=== PATIENT | male | born 1965 | race Caucasian/White ===

== ENCOUNTER 2025-07-14 12:49 | Outpatient (CLI) | payer OTHER, SELFPAY ==
--- OUTSIDE RECORDS SUMMARY | 2025-07-15 10:13 | XMS_ITS | Clinical Summary ---
Author Organization [facility] Address [address] [place] [address] Care Team Providers Care Staking Engineer Name Role Phone [facility], [place] Pro vider Allergies No known active allergies Medications TESTOSTERONE ENANTHATE SC Inject 200 mg as directed per week. 11/16/2021 Active budesonide-form oterol (SYMBICORT) 160-4.5 MCG/ACT inhaler Inhale 2 puffs twice a day. 02/10/2022 Active traZODone (DESYREL) 100 MG tablet Take 1 tablet (100 mg) by mouth at bed time. 03/02/2022 Active baclofen (LIORESAL) 10 MG tablet Take 1 tablet (10 mg) by mouth 3 times a day. 04/26/2022 Active nicotine (NICODERM CQ) 21 MG/24HR Place 21 mg on the skin 1 (one) time each day at the same time. 04/26/2022 Active acetaminophen (TYLENOL) 325 MG tablet Take 2 tablets (650 mg) by mouth 1 (one) time each day if needed for Pain Score 1-3 (mild pain). Active Melatonin 5 MG capsule Take 2 capsules by mouth every night. Active omeprazole OTC (PriLOSEC OTC) 20 MG EC tablet Take 1 tablet (20 mg) by mouth 1 (one) time each day. Do not crush, chew, or split. Active Probiotic Product (Align) chewable tablet Chew 1 Gum 1 (one) time each day. Active Ascorbic Acid (vitamin C) 1000 MG tablet Take 2 tablets (2,000 mg) by mouth 1 (one) time each day. Active Testosterone Cypionate 200 MG/ML solution Inject 200 mg as directed 1 (one) time per week. Max Daily Amount: 200 mg Active HYDROcodone-karoline taminophen ([place]) 10-325 MG tablet Take 1 tablet by mouth every 6 (six) hours if needed for Pain Score 7-10 (severe pain). Max Daily Amount: 4 tablets 20 tablet 05/08/2022 10:09 PM CDT 05/08/2022 Active Active Problems Problem Noted Date Diagnosed Date Hepatic abscess 05/04/2022 Family History Medical History Relation Name Comments No Known Problems Father No Known Problems Mother Relation Name Status Comments Father Mother Social History Tobacco Use Types Packs/Day Years Used Date Smoking Tobacco: Every Day Cigarettes Smokeless Tobacco: Never Tobacco Cessation:Ready to Q uit: Not Asked; Counseling Given: Not Answered Alcohol Use Standard Drinks/Week Comments Yes 5 (1 standard drink = 0.6 oz pur e alcohol) Humiliation, Afraid, Rape, and Kick questionnair e Answer Date Recorded Within the last year, have y ou been afraid of your partner or ex-partner? No 05/05/2022 Within the last year, have y ou been humiliated or emotionally abused in other ways by your partner or ex-partner? No Within the last year, have y ou been kicked, hit, slapped, or otherwise physically hurt by your partner or ex-partner? No 05/05/2022 Within the last year, have y ou been raped or forced to have any kind of sexual activity by your partner or ex-partner? No 05/05/2022 Social Connection and Isolation Panel Answer Date Recorded Frequency of Communication with Friends and Fami ly Not on file 05/06/2022 Frequency of Social Gatherings with Friends and Family Not on file 05/06/2022 Attends Zoroastrian Services Not on file 05/06 Active Member of Clubs or Organizations Not on f ile 05/06/2022 Attends Club or Organization Meetings Not on gertrude e 05/06/2022 Are you , , di vorced, , never , or living with a partner? 05/06/2022 AUDIT-C Answer Date Recorded Q1: How often do you have a drink containing alc ohol? 2-4 times a month 05/06/2022 Q2: How many drinks containi ng alcohol do you have on a typical day when you are drinking? 1 or 2 05/06/2022 Q3: How often do you have si x or more drinks on one occasion? Never 05/06/2022 PHQ-2 Answer Date Recorded Total PHQ-2 Score 0 05/04/2022 Hunger Vital Sign Answer Date Recorded Within the past 12 months, y ou worried that your food would run out before you got the money to buy more. Never true 05/05/20 Within the past 12 months, t he food you bought just didn't last and you didn't have money to get more. Never true 05/05/2022 PRAPARE - Transportation Answer Date Re corded In the past 12 months, has l ack of transportation kept you from medical appointments or from getting medications? No 04/16 In the past 12 months, has l ack of transportation kept you from meetings, work, or from getting things needed for daily living? No 05/05/2022 Sex and Gender Information Value Date Recorded Sex Assigned at Not on file Legal Sex Male 1:58 PM CDT Gender Identity Not on file Sexual Orientation Not on file Last Filed Vital Signs Vital Sign Reading Time Taken Comments Blood Pressure 139/85 05/08/2022 2:14 PM CDT Pulse 77 05/08/2022 2:14 PM CDT Temperature 37 C (98.6 F) 05/08/2022 2:14 PM CDT Respiratory Rate 18 05/08/2022 2:14 PM CDT Oxygen Saturation 98% 05/08/2022 2:14 PM CDT Inhaled Oxygen Concentration - - Weight 90.7 kg (200 lb) 05/04/2022 1:26 PM CDT Height 188 cm (6' 2 ) 05/04/2022 1:26 PM CDT Body Mass Index 25.68 05/04/2022 1:26 PM CDT Plan of Treatment Health Maintenance Due Date Last Done Comments Colonoscopy 1965 Colorectal Cancer Screening 1965 FIT-DNA (Cologuard) 1965 Lipid Panel 1965 Stool Based Tests/ FIT 1965 Hemoglobin A1C 1983 Hepatitis C Screening 1983 DTaP,Tdap,and Td Vaccines (1 - Tdap) 1984 Hepatitis B Vaccines (1 of 3 - 19+ 3-dose series) 1984 Pneumococcal Vaccine: 50+ Ye ars (1 of 2 - PCV) 1984 RSV Vaccine for pat ients and patients aged 50 years or older (1 - Risk 50-74 years 1-dose series) 2015 Zoster Vaccines (1 of 2) 2015 COVID-19 Vaccine (2 - 2024-2 6 season) 2025 03/01/2021 Influenza Vaccine (#1) 2025 HIV Screening Completed 05/04/2022 HPV Vaccines (No Doses Required) Completed Meningococcal Vaccine (MCV4) Aged Out No longer eligible based on patient's age to complete this topic Procedures Procedure Name Priority Date/Time Associated Diagnosis Comments HIV UNIVERSAL SCREENING STAT 05/04/2022 2:06 PM CDT from Last 3 Months or Most Recently Relevant to Health Maintenance Results * HIV Ag/Ab [place] Screen (05/04/2022 2:06 PM CDT) [facility] HIV Ag/Ab Combo (CHIV) Assay Nonreactive Nonreactive 05/04/2022 5:13 PM CDT [facility] Blood Venous blood / Unknown Venipuncture / Unknown 05/04/2022 2:06 PM CDT 05/04/2022 2:23 PM CDT us Mateo Kaplan PA-C LAB BLOOD ORDERABLES Final R esult [facility] [place] [address] from Last 3 Months or Most Recently Relevant to Health Maintenance Insurance [employer] Advance Directives For more information, please contact: [phone] * Full Code (Latest Code Status on File) Date Activated Date Inactivated Comments 05/04/2022 9:55 PM 05/09/2022 12:09 AM Care Teams Staking Engineer Relationship Specialty Start Date End Date [facility] [address] [place] [address] PCP - General 05/08/22
--- OUTSIDE RECORDS SUMMARY | 2025-07-15 10:13 | XMS_ITS | Patient Health Record ---
Author Organization [facility] Billing Info Address [address] [place] [address] Phone [phone] Care Team Providers Care Beaming Machine Operator Name Role Phone JOSE ANTONIO MANZO Primary Care Provider Unavailabl e Allergies No Known Allergies Reason For Referral No Information Medications Medication SIG (Take, Route, Frequency, Duration) Notes Start Date End Date Diagnosis (ICD Code) Status Crestor Not-Taking Trazodone HCl Active Wellbutrin SR Active Symbicort Active Testosterone Cypionate Active ProAir RespiClick prn Active Omeprazole Active Social History Tobacco Use: Social History Observation Description Date Details (start date - stop date) Current Smoker NA - NA Sex Observation Social History Observation Description Sex Observation Male Social History Social History Social Info Question Answer Notes Tobacco Status: Patient is a current every day smoke r packs per day 1 Alcohol Use: Patient uses alcohol once a week Section Notes: Patient agrees to a blood tr ansfusion. Problems Problem Type SNOMED Code ICD Code Dates Problem Status W/U Status Risk Notes Problem Electrocardiogram abnormal (005914416) Abnormal EKG (R94.31) Added On:01/2023 Active confirmed Problem Tobacco abuse (8570278567) Tobacco abuse (Z72.0) Added On:01/2023 Active confirmed Problem Abdominal aortic atherosclerosis (696167982) Abdominal aortic atherosclerosis (I70.0) Added On:01/2023 Active confirmed Plan Of Treatment Pending Test Test Name Order Date EKG (30179) ([facility]MMIQ[facility]) 023 Future Test Test Name Order Date ECHO (70812) 09/19/2022 CARDIAC CALCIUM SCORE (CCSA 32869) 09/19 Insurance Providers Payer Name Payer Address Payer Phone Subscriber Number Group Number Insured Name Patient Relationship to Insured Coverage Start Date Coverage End Date [facility] [address] [place], [place] [id number] James Garza Self - patient is the insured Medical (General) History Medical History History ICD Code Esophageal reflux Insomnia Low testosteronemi Mixed hyperlipidemia Abscess Polycythemia Restless leg syndrome Leukocytosis atherosclerosis Surgical History Surgery Date(Month/Year) cholecystectomy ecoli removed from stomach after gallbla dder removed Hospitalization History Reason Date(Month/Year) Alex bladder removal 04/2022 ecoli inection
--- OUTSIDE RECORDS SUMMARY | 2025-07-15 10:13 | XMS_ITS | Data Portability ---
Author Organization [place] - [facility], [facility] - General Surgery [place] [address] Assessment Encounter Date Assessment Date Assessment LastModified by Organization Details LastModified Time 11/27/2024 11/27/2024 I am providing care for this patient as a PCP meaning I have provided ongoing care for this patient regarding all the chronic health issues affecting the patient. A total of minutes was spent obtaining /reviewing the patient's history, performing an examination, reviewing records, ordering medications or diagnostic tests/procedures , coordination of care and documenting clinical information in the medical record. This time does not include activities normally performed by clinical staff or duplicate any time spent by other healthcare professionals on the same day. Disclaimer: This document was created with the use of artificial intelligence and/or dictation software, there may be typographical errors in this documentation. Not available 11/27/2024 10:59:02 Plan of Treatment Reminders Order Date Submit Date Provider Last Modified By Organization Details Last Modified Time Details Appointments Annual exam (30) 2025 10:00A M Ty Funez MD Not available Not available Not available Lab CMP, serum or plasma [address] (Lab), [address] [place], [address], 06/22/2025 08:48:24 CBC w/ auto diff [address] (Lab), [address] [place], [address], 06/22/2025 08:48:24 lipid panel, serum [address] (Lab), [address] [facility] , [place], [address], 06/22/2025 08:48:24 apolipo protein B (apo B), serum [address] (Lab), [address] [facility] , [place], [address], 07/13/2025 09:54:56 vitamin D, 25-hydr oxy, total, serum [address] (Lab), [address] [facility] , [place], [address], 07/13/2025 09:54:56 PSA, serum or plasma [address] (Lab), [address] [facility] , [place], [address], 07/13/2025 09:54:56 testost erone, total, serum [address] (Lab), [address] [facility] , [place], [address], 02/11/2025 10:04:00 urinaly sis, dipstic k 2024 025 [facility], [address], [address], [place], [address], 12/30/2024 17:57:09 lipid panel, serum [address] (Lab), [address] [facility] , [place], [address], 12/18/2024 08:53:03 testost erone, total, serum 2024 025 [facility] (Lab), [address] [place] [address] [place], [address], 06/15/2025 15:23:54 vitamin B12, serum 2024 025 [facility] (Lab), [address] [place] [address] [place], [address], 06/15/2025 15:24:20 PSA, total, serum or plasma 2024 025 [facility] (Lab), [address] [place] [address] [place], [address], 06/15/2025 15:24:44 CBC w/ auto diff [address] (Lab), [address] [place] [address] [place], [address], 12/18/2024 08:53:03 CMP, serum or plasma [address] (Lab), [address] [place] [address] [place], [address], 12/18/2024 08:53:03 Referral None recorde d. Procedures None recorde d. Surgeries None recorde d. Imaging LDCT, chest, for lung cancer screeni ng - lookup the date of last lung cancer screeni ng, [facility] at [facility] 2024 025 [email or web address] [facility], [address] [place] [address] [place], [address], 01/08/2025 11:02:53 Medication Orders flutica sone propion ate 50 mcg/act uation nasal spray,s uspensi on 2024 025 josef [place] [facility], [address] [facility], [place], [address], 01/14/2025 11:18:00 azithro mycin 500 mg tablet 2024 025 [facility], [address] , [place], [address], 06/15/2025 14:36:35 budeson jai-for moterol HFA 160 mcg-4.5 mcg/act uation aerosol inhaler 2024 025 fsalley [facility], [address], [place], [address], 01/14/2025 11:18:00 terbina fine HCl 250 mg tablet 2024 025 D[facility] [place] [facility], [address] , [place], [address], 06/15/2025 14:36:32 trazodo ne 100 mg tablet 2024 025 [facility], [address] , [place], [address], 11/27/2024 10:45:36 bupropi on HCl 150 mg tablet, 12 hr sustain ed-rele ase([facility] cinthya deterre nt) 2024 025 DEE[facility], [address] [facility], [place], [address], 12/30/2024 16:52:33 Patient TargetsNo targets recorded. Patient Instructions Encounter Date Encounter Id Patient Instructions Last Modified By Organization Details Last Modified Time 11/27/2024 [id number] chronic obstructive pulmonary disease (COPD): care instructions Not available 11/27/2024 10:45:32 learning about copd and how to prevent lung infections Not available 11/27/2024 10:45:33 heart-healthy diet: care instructions Not available 11/27/2024 10:45:33 Decreased Male Libido: Care Instructions Not available 11/27/2024 10:45:33 12/30/2024 [id number] Patient instructed to increase water intake until urine is clear. [email or web address] Not available 12/30/2024 17:42:45 Reason for Referral None Reported. Results Created Date Observation Date Name Description Value Unit Range Abnormal Flag Note LastModifiedBy Organization Detail LastModifiedTime 12/31/1912/30/2024 urina lysis , dipst ick Color thelma Not Available [facility] [address] [facility] Clementina sarabia, [place], [address], 12/30/2024 17:28:25 12/31/19 25 12/30/2024 urina lysis , dipst ick Clarity slight ly cloudy Not Available [facility] [address] [facility] no, [place], [address], 12/30/2024 17:28:25 12/31/19 25 12/30/2024 urina lysis , dipst ick Glucose (mg/dl) Negati ve Not Available [facility] [address] [facility] no, [place], [address], 12/30/2024 17:28:25 12/31/19 25 12/30/2024 urina lysis , dipst ick Bilirubin Small+ Not Available [facility] [place] [address] [facility] no, [place], [address], 12/30/2024 17:28:25 12/31/19 25 12/30/2024 urina lysis , dipst ick Ketone (mg/dl) 15 (small ) Not Available [facility] [place] [address] [facility] no, [place], [address], 12/30/2024 17:28:25 12/31/19 25 12/30/2024 urina lysis , dipst ick Specific [place] >=1.03 0 Not Available [facility] [place] [address] [facility] no, [place], [address], 12/30/2024 17:28:25 12/31/19 25 12/30/2024 urina lysis , dipst ick Blood Negati ve Not Available [facility] [place] [address] [facility] no, [place], [address], 12/30/2024 17:28:25 12/31/19 25 12/30/2024 urina lysis , dipst ick pH 5.5 Not Available [facility] [address] [facility] no, [place], [address], 12/30/2024 17:28:25 12/31/19 25 12/30/2024 urina lysis , dipst ick Protein (mg/dl) 30+ Not Available [facility] [place] [address] [facility] no, [place], [address], 12/30/2024 17:28:25 12/31/19 25 12/30/2024 urina lysis , dipst ick Urobilinogen (E.U./dl) 0.2 Not Available [facility] [place] [address] [facility] no, [place], [address], 12/30/2024 17:28:25 12/31/19 25 12/30/2024 urina lysis , dipst ick Nitrite negati ve Not Available [facility] [place] [address] [facility] no, [place], [address], 12/30/2024 17:28:25 12/31/19 25 12/30/2024 urina lysis , dipst ick Leukocytes Negati ve Not Available [facility] [place] [place] [address] [facility] no, [place], [address], 12/30/2024 17:28:25 11/14/19 25 03/22/2021 LDCT, chest , for lung karla r stephy gillespie No observ ation record ed. [address] Radiology Department [address] [place] [address] , [place], [address], 11/17/2024 08:56:53 Result Notes None recorded. 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 5 09:11:10 Testosteron e level below reference range 570099503 Active 2019 Jing Haque [facility] 5 09:11:09 Chronic obstructive pulmonary disease 00256825 [facility] 2019 [facility] 09:11:10 Acid reflux 991242758 Active 2019 [facility] 09:11:10 Insomnia 327348939 Active [address] [facility] 5 09:11:10 Fatigue 89788953 Active 2024 Simon Schaefer DO Laura [facility] [address], [place], [address] , [facility] 5 10:36:45 Reduced libido 7717434 Active 2024 DO Michele Caruso [facility] [address], [place], [address] , [facility] 5 10:36:55 Hyperlipide sarah 73376530 Active 2024 Simon Schaefer, [address] [place] [address] [address], [place], [address] , [facility] 5 10:37:54 Chronic insomnia 574257932 Active 2024 Simon Schaefer DO [address] [place] [address] [address], [place], [address] , [facility] 5 10:39:44 Cigarette smoker 87365540 Active 2024 Simon Schaefer DO [address] [place] [address] [address], [place], [address] , [facility] 5 10:50:17 Onychomycos is of toenails 494176537 Active 2024 Simon Schaefer, [address] [place] [address] [address], [place], [address] , [facility] 5 10:58:31 Problem Notes None recorded. Medical Equipment None Reported. Allergies No known drug allergies Medications Name Sig Start Date Stop Date Status Note LastModified by Organization Details LastModified Time bupropion HCl SR 150 mg tablet,12 hr sustained-r elease 11/03 completed Not Available Not Available Not Available ketoconazol e 2 % shampoo 11/03 completed Not Available Not Available Not Available trazodone 50 mg tablet 11/03 completed Not Available Not Available Not Available fluconazole 150 mg tablet 11/03 completed Not Available Not Available Not Available benzonatate 200 mg capsule Take 1 capsule 3 times a day by oral route as needed, for cough. 11/06 completed Not Available Not Available Not Available hydrocodone 5 mg-acetamin ophen 325 mg tablet 11/03 completed Not Available Not Available Not Available prednisone 20 mg tablet Take 1 tablet twice a day by oral route for 5 days. 11/06 completed Not Available Not Available Not Available acetaminoph en 300 mg-codeine 30 mg tablet 11/03 completed Not Available Not Available Not Available tramadol 50 mg tablet TAKE ONE (1) OR TWO (2) TABLET(S) BY MOUTH EVERY SIX HOURS NEEDED FOR PAIN. 11/03 completed Not Available Not Available Not Available terbinafine HCl 250 mg tablet Take 1 tablet every day by oral route for 84 days. 06/15 completed Not Available Not Available Not Available trazodone 100 mg tablet Take 2 tablets every day by oral route as needed for 90 days. 2024 active Not Available Not Available Not Avai lable baclofen 10 mg tablet TAKE ONE (1) TABLET(S) BY MOUTH THREE TIMES A DAY. 11/03 completed Not Available Not Available Not Available hydrocodone 7.5 mg-acetamin ophen 325 mg tablet 11/03 completed Not Available Not Available Not Available testosteron e cypionate 200 mg/mL intramuscul ar oil 11/03 completed Not Available Not Available Not Available scopolamine 1 mg over 3 days transdermal patch 11/03 completed Not Available Not Available Not Available albuterol sulfate HFA 90 mcg/actuati on aerosol inhaler Inhale 2 puffs every 4 hours by inhalatio n route as needed. 06/15 completed Not Available Not Available Not Available ondansetron 4 mg disintegrat ing tablet 11/03 completed Not Available Not Available Not Available fluticasone propionate 50 mcg/actuati on nasal spray,suspe nsion 2 sprays each nostril daily for 2 weeks 2024 active Not Available Not Available Not Avai lable amoxicillin 875 mg-potassiu m clavulanate 125 mg tablet TAKE ONE (1) TABLET(S) BY MOUTH EVERY TWELVE HOURS. 11/03 completed Not Available Not Available Not Available ciclopirox 0.77 % topical cream 11/03 completed Not Available Not Available Not Available azithromyci n 500 mg tablet Take 1 tablet every day by oral route for 3 days. 06/15 completed Not Available Not Available Not Available eszopiclone 3 mg tablet TAKE 1 TABLET BY MOUTH EVERYDAY AT BEDTIME 11/03 completed Not Available Not Available Not Available budesonide- formoterol HFA 160 mcg-4.5 mcg/actuati on aerosol inhaler Inhale 2 inhalatio ns twice a day by inhalatio n route for 30 days. 2024 active Not Available Not Available Not Avai lable bupropion HCl 150 mg tablet,12 hr sustained-r elease(smok ing deterrent) Take 1 tablet twice a day by oral route for 90 days. 12/30 completed Not Available Not Available Not Available Vitals Date Recorded Body height Body mass index (BMI) Body weight Body temperature Heart rate Oxygen saturation Respiratory rate Systolic And Diastolic Provider Name and Address Organization Details Last Updated DateTime 5 182.88 cm 29.7 kg/m2 87221.7 3 g 98 [degF] 83 /min 93 % 20 /min 114/76 mm[Hg] Jing Haque [facility] 5 10:13:02 Date Recorded Body height Body mass index (BMI) Body weight Body temperature Heart rate Oxygen saturation Respiratory rate Systolic And Diastolic Provider Name and Address Organization Details Last Updated DateTime 5 182.88 cm 29.4 kg/m2 36082.7 5 g 98.1 [degF] 78 /min 96 % 20 /min 120/62 mm[Hg] Keesha Ross [facility] 5 16:53:30 Date Recorded Body height Body mass index (BMI) Body weight Body temperature Heart rate Oxygen saturation Respiratory rate Systolic And Diastolic Provider Name and Address Organization Details Last Updated DateTime 5 182.88 cm 29.4 kg/m2 26810.5 4 g 97.5 [degF] 71 /min 95 % 18 /min 120/84 mm[Hg] Keesha Ross [facility] 5 10:45:03 Date Recorded Body height Body mass index (BMI) Body weight Body temperature Heart rate Oxygen saturation Respiratory rate Systolic And Diastolic Provider Name and Address Organization Details Last Updated DateTime 5 182.88 cm 29.6 kg/m2 65607.9 3 g 98.1 [degF] 78 /min 94 % 20 /min 118/70 mm[Hg] Keesha Ross [facility] 5 14:32:47 Social History Question Answer Notes LastModified by Organizat ion Details LastModified Time Tobacco Smoking Status Current Every Day Smoker Notes: 30 years X ( was previously 3 PPD now down to 1 PPD) Not Available [facility] 12/31/2019 16:32:30 Do You Have An Advance Directive? No [email or web address] Information not available 11/27/2024 Are You Blind Or Do You Have Difficulty Seeing? No [email or web address] Information not available 11/27/2024 Is Blood Transfusion Acceptable In An Emergency? Yes [email or web address] Information not available 11/27/2024 Are You Deaf Or Do You Have Serious Difficulty Hearing? Yes Hard Hearing; No Hearing Aids Information not available 06/15/2025 What Type Of Diet Are You Following? REGULAR Information not available 11/27/2024 Do You Have A Medical Power Of Cylinder Handler? No [email or web address] Information not available 11/27/2024 What Was The Date Of Your Most Recent Tobacco Screening? 06/15/2025 [email or web address] Information not available 06/15/2025 How Many Children Do You Have? 3 Information not available 11/27/2024 What Is Your Relationship Status? [email or web address] Information not available 11/06/2024 Has Tobacco Cessation Counseling Been Provided? Yes [email or web address] Information not available 12/30/2024 On What Date Was Tobacco Cessation Counseling Provided? 12/30/2024 Information not available 12/30/2024 How Many Years Have You Smoked Tobacco? 40 [email or web address] Information not available 11/06/2024 Sex: Unknown Functional Status Question Answer Note LastModified by Organizat ion Details LastModified Time Do you use any illicit or recreational drugs? No [email or web address] Information not available 06/15/2025 What is your level of alcohol consumption? Occasional [email or web address] Information not available 06/15/2025 Are you currently employed? Yes Information not available 11/27/2024 Do you have transportation difficulties? No [email or web address] Information not available 11/27/2024 Are you able to walk independently without assistance or assistive devices? YESWOREST [email or web address] Information not available 11/27/2024 Do you have difficulty doing errands alone? No [email or web address] Information not available 11/27/2024 Are you able to care for yourself independently? 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 None [email or web address] Information not available 06/15/2025 Do you or have you ever used any nicotine-free cigarettes, vape, or chewing tobacco? No [email or web address] Information not available 06/15/2025 Mental Status Question Answer Note LastModified by Organizat ion Details LastModified Time Do you feel stressed (tense, restless, nervous, or anxious, or unable to sleep at night)? [id number] [email or web address] Information not available 06/15/2025 Do you have difficulty concentrating, remembering or making decisions? No [email or web address] Information no t available 11/27/2024 Family History Nothing Reported. Medical History No medical history recorded. Immunizations Vaccine Type Date Status Note Provider Nam e and Address Organization Details Recorded Time Td (adult), 5 Lf tetanus toxoid, preservative free, adsorbed 0 completed Jing Haque [place], [place] - [facility] 11/06/2024 09:11:10 Past Encounters Encounter ID Performer Location Encounter Start Date Encounter Closed Date Diagnosis/Indication Diagnosis SNOMED-CT Code Diagnosis ICD10 Code Diagnosis IMO Codes Diagnosis Note [id number] Jack Medina MD [facility] - General Surgery [facility] [address] [address] 12/01/2021 14:15:49 12/01/2021 15:33:53 Acute appendicitis 36940507 K35.80 - Recovering well after surgery-Co ntinue lifting restrictio ns for 2 more weeks-Foll ow-up with me as needed [id number] Jack Medina MD [facility] - General Surgery [address] [place] [address] 05/01/2022 14:55:02 05/01/2022 15:39:38 Acute cholecystitis 51380517 K81.0 -Repeat labs-Robert nue PO Abx-Will decide timing of repeat CT scan based on blood work [id number] Rahul Michael MD [facility] [address] [address] 11/03/2024 15:52:26 11/03/2024 16:35:16 Cigarette smoker 03818270 F17.210 681497 Acute bronchitis 8186142 2 J20.9 Suspect pt likely has undiagnose d COPD Acute cough 5609990831 75718682 R05.1 4737404518 use plain mucinex with increased water intake per box instructio ns, especially first thing in the morninghon ey is a natural cough suppressan t- may take 1 teaspoon of honey every 6 hours alone or mix in warm teamay use OTC cough dropscool mist humidifier at bedside [id number] Simon AbebemerDO [facility] - [place] [address] [place] [address] 11/27/2024 09:43:55 11/27/2024 10:49:25 Chronic obstructive pulmonary disease 13008038 J44.9 Probable COPD: Assessment : - History of chronic obstructiv e pulmonary disease with ongoing smoking and vaping. Reports mild breathing problems, previously used albuterol and budesonide -formotero l inhalers with some benefit. No current wheezing on exam. No formal pulmonary function testing completed to date. Plan: - Trial of combinatio n inhaler (budesonid e/glycopyr rolate/for moterol) twice daily for two weeks. Educate on proper inhaler technique. If symptoms improve, consider prescripti on and proceed with formal pulmonary function testing. Insole Lip Turner on smoking cessation and discuss nicotine replacemen t options. Schedule follow-up in two weeks to reassess symptoms and inhaler response. Well adult 157080388 Z00 .00 75049080 Laboratory monitoring :Assessmen t:- Multiple labs needed for ongoing management (CBC, CMP, testostero ne, PSA, lipid panel, liver function tests, B12).Plan: - Labs to be drawn fasting between 7AM and 10AM. Patient instructed to confirm insurance coverage and preferred lab location. Review results at follow-up visit. Fatigue 19385210 R53.82 948079 Reduced libido 4015428 R 68.82 553892 Testostero ne deficiency :Assessmen t:- History of testostero ne injections , last dose approximat char six months ago. Reports decreased libido and erectile dysfunctio n. Prior testostero ne levels ranged from 300 to 600. No current therapy.Pl an:- Order fasting morning labs (testoster one, pituitary hormones, CBC) between 7AM and 10AM. Repeat confirmato ry labs if initial testostero ne is low. If confirmed, consider resuming testostero ne therapy per guidelines . Monitor for polycythem ia and adverse effects. Screening for malignant neoplasm of prostate 719772161 Z12.5 233328 Will check PSA Hyperlipidemia 44173058 E78.5 Hyperlipid emia:Asses sment:- History of elevated cholestero l, previously monitored and managed with fish oil. No recent lipid panel.Plan :- Order fasting lipid panel. Review results and adjust therapy as needed. Ex-smoker 6645347 Z87.89 1 cardiovasc ular risk prior to initiation .Lung cancer screening: Assessment :- Significan t smoking history (estimated 20 pack-years ). No prior low-dose CT scan.Plan: - Order low-dose CT scan of the chest for lung cancer screening. Provide scheduling informatio n and instructio ns. Chronic insomnia 9611861 04 F51.04 852865 Sleep disturbanc e:Assessme nt:- History of poor sleep patterns related to prior [employer] career. Reports benefit from trazodone 200 mg at bedtime.Pl an:- Resume trazodone 200 mg nightly as previously prescribed . Monitor for efficacy and side effects. Cigarette smoker 1482004 7 F17.210 384432 Will send over bupropion as it has worked in the past for smoking cessation. Onychomyco sis of toenails 055593716 B35.1 9215317 Onychomyco sis:Assess ment:- History of chronic toenail fungus, previously treated with oral terbinafin e. Not currently on therapy.Pl an:- Order baseline liver function tests prior to restarting oral antifungal therapy. Resume terbinafin e if labs are within normal limits. Monitor for hepatic side effects. [id number] Rahul Michael MD [facility] [address] [address] 12/18/2024 18:33:43 12/18/2024 18:43:01 [id number] Ty Funez MD [facility] - [place] [address] [place] [address] 12/30/2024 16:41:38 12/30/2024 17:29:21 Flank pain 727545498 R10.9 15522 Resolved s table Mild dehydration 1325994 119 108 E86.0 041324 Urine specific gravity greater than 1.030 s table Acute pyelitis 08281328 N10 28838 Resolved s table [id number] Ty Funez MD [facility] [place] [address] [place] [address] 01/14/2025 09:46:39 01/14/2025 11:18:54 Reduced libido 9353389 R68.82 893498 Stable Chronic ob structive pulmonary disease 31008010 J44.9 Stable Acute bact erial sinusitis 24290849 J01.90 B96.89 68007 Stable Cigarette smoker 5416333 7 F17.210 288626 Stable [id number] Ty Funez MD [facility] [place] [address] [place] [address] 06/15/2025 14:09:25 06/15/2025 14:59:30 Adult health examination 205104897 Z00.01 661226 9802919 Seborrheic keratosis 394 919549 L82.1 31373 Left ear r eassurance : Stable Family his tory of malignant melanoma 974049417 Z80.8 362197 Father: Stable Health Concerns Section Related Observation LastModified by Organization Detai ls LastModified Time None Recorded Concern Status LastModified by Organization Details LastModified Time None Recorded Advance Directives Directive N: Payers Insurance Date Sequence Insurance Name Policy Number Policy Caballero Covered Member ID Caballero Member ID Guarantor Name 06/16/2025 1 [employer] (HMO) [id number] Adrian Garza [id number] James Garza 12/18/2024 1 [facility] James Garza [id number] James Garza Notes Date Note Type Note Provider Name and Address Organization Details Recorded Time 11/27/2024 text/html ROS as noted in the HPI Patient here to establish care with Dr. Schaefer.NEUROSURGERY PHYSICIAN est care, time for labs, discuss breathing issuesPatient reports he needs refill of trazodone, restart testosterone, full body check up, toenail fungus medication. Patient reports that he went to urgent care 3 weeks ago for bronchitis. Patient states he needs his PSA checked and his hemoglobin. Reports last testosterone injection was 6-8 months ago. Previous provider: Kiersten Consent: yesColonoscopy: 2022, denies known familial history of colorectal cancerProstate: denies known familial history of prostate cancer The patient is a 59-year-old male who presents for re-establishment of care and management of ongoing health concerns. 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 He has not been on testosterone injections for approximately six months but previously received them for low testosterone, with prior monitoring of red blood cell counts. He describes erectile dysfunction and decreased libido, noting difficulty achieving a firm erection. He also reports a history of toenail fungus previously treated with oral antifungal medication, which he has not taken recently. The patient has a significant smoking history of approximately one pack per day for twenty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
--- OUTSIDE RECORDS SUMMARY | 2025-07-15 10:13 | XMS_ITS | Data Portability ---
Author Organization [place] [facility] Oropeza [facility] Address [address] [place] [address] Assessment No assessment recorded. Plan of Treatment Reminders Order Date Submit Date Provider Last Modified By Organization Details Last Modified Time Details Appointments None record ed. Lab None record ed. Referral None record ed. Procedures None record ed. Surgeries None record ed. Imaging None record ed. Medication Orders None record ed. Patient TargetsNo targets recorded. Patient InstructionsNo instructions recorded. Reason for Referral None Reported. Results Created Date Observation Date Name Description Value Unit Range Abnormal Flag Note LastModifiedBy Organization Detail LastModifiedTime Result Notes None recorded. Problems Name Problem SNOMED Code Status Onset Date Resolution Date Notes Provider Name and Address Organization Details Recorded Time Chronic obstructiv e pulmonary disease 20422440 Active 201910/21/19 tightness in his lungs. He states his bp and EKG is normal Jett Beard MD [address], [place], [address] , [place], [place] 0 13:04:15 Chest pain 24496809 Active 2019 Jett Beard MD [address], [place], [address] , [place], [place] 0 13:06:44 Arthritis 5429181 Active 2019 Jett Beard MD [address], [place], [address] , [place], [place] 0 13:11:52 Problem Notes None recorded. Procedures Surgical History Date Name Laterality Status Provider Name and Address Organization Details Recorded Time 5 Remove tonsils and adenoids completed Jett Beard MD [address], [place], [address], [place] [facility] [place] [place] 10/21/2019 13:08:57 Imaging Results None recorded. Procedure Notes None recorded. Medical Equipment None Reported. Medications Name Sig Start Date Stop Date Status Note LastModified by Organization Details LastModified Time ropinirole 1 mg tablet active Not Available Not Available No t Available ipratropium 0.5 mg-albuterol 3 mg (2.5 mg base)/3 mL nebulization soln active Not Available Not Available Not Available trazodone 50 mg tablet active Not Available Not Available No t Available cephalexin 500 mg capsule active Not Available Not Available Not Available pantoprazole 40 mg tablet,delay ed release TAKE 1 TABLET BY MOUTH EVERY DAY active Not Available Not Available No t Available mirtazapine 30 mg tablet active Not Available Not Available Not Available oseltamivir 75 mg capsule active Not Available Not Available Not Available nicotine 21 mg/24 hr daily transdermal patch active Not Available Not Available Not Available testosterone cypionate 200 mg/mL intramuscula r oil active Not Available Not Available Not Available methylpredni solone 4 mg tablets in a dose pack active Not Available Not Available No t Available albuterol sulfate HFA 90 mcg/actuatio n aerosol inhaler INHALE 2 PUFFS (180 MCG) BY INHALATION ROUTE EVERY 6 HOURS NEEDED FOR 30 DAYS active Not Available Not Available No t Available SSD 1 % topical cream active Not Available Not Available Not Available fluticasone propionate 50 mcg/actuatio n nasal spray,suspen padmini active Not Available Not Available Not Available eszopiclone 3 mg tablet active Not Available Not Available Not Available aspirin 81 mg po daily active Not Available Not Available No t Available Symbicort 160 mcg-4.5 mcg/actuatio n HFA aerosol inhaler INHALE 2 PUFFS BY MOUTH TWICE A DAY IN THE MORNING AND IN THE EVENING active Not Available Not Available No t Available Wixela Inhub 250 mcg-50 mcg/dose powder for inhalation active Not Available Not Available N ot Available Vitals None Recorded Social History Question Answer Notes LastModified by Organizat ion Details LastModified Time Tobacco Smoking Status Current Every Day Smoker Jett Beard MD [address], [place], [address], [place] [facility] [place] [place] 10/21/2019 13:08:03 What Was The Date Of Your Most Recent Tobacco Screening? 10/21/2019 Information not available 10/21/2019 How Much Tobacco Do You Smoke? 1 PPW Information not available 10/21/2019 How Many Years Have You Smoked Tobacco? 30 Information not available 10/21/2019 Sex: Unknown Functional Status None recorded. Mental Status None recorded. Family History Relationship Description Onset Age of this Age Resolved Age Notes LastModified by Organization Details LastModified Time Father No current problems or disability Not available 10/20 13:07:05 Father Adenoma malignum from [place] ma Not available 10/21/2019 13:07:58 Mother No current problems or disability Not available 10/20 13:07:05 Mother Malignant neoplastic disease breast cancer Not available 10/21/2019 13:07:31 Medical History Condition Response Coronary Artery Disease N Thyroid Problems N Congenital Heart Disease N Depression N COPD Y Peripheral Arterial Disease N Anemia N Cardiac Device N Congestive Heart Failure N Genitourinary Disease N Gastrointestinal Disease N Heart Attack (NE) N Deep Vein Thrombosis N Diabetes N Cardiomyopathy N Hyperlipidemia N Cancer N CVA N Stroke N Asthma Y Sleep Disorder N Aortic Aneurysm N Warfarin Management N Neurologic Disorder N Liver Disease N Valvular Abnormalities N Arrhythmia Y Hypertension N Kidney Disease N Hematologic Disease N Past Encounters Encounter ID Performer Location Encounter Start Date Encounter Closed Date Diagnosis/Indication Diagnosis SNOMED-CT Code Diagnosis ICD10 Code Diagnosis IMO Codes Diagnosis Note [id number] Jett Beard MD [facility] [address] [place] [address] 10/21/2019 12:39:15 10/21/2019 13:27:25 Chronic obstructive pulmonary disease 21369057 J44.9 Precordial pain 43749116 R07.2 He will do stress test and echo in 2 months. Smoker 60114411 F17.200 1 ppd Health Concerns Section Related Observation LastModified by Organization Detai ls LastModified Time None Recorded Concern Status LastModified by Organization Details LastModified Time None Recorded Advance Directives Directive None Recorded Payers Insurance Date Sequence Insurance Name Policy Number Policy Caballero Covered Member ID Caballero Member ID Guarantor Name 12/19/2019 1 [employer] [id number] Adrian Garza [id number] Adrian Garza Notes Date Note Type Note Provider Name and Address Organization Details Recorded Time 10/21/2019 text/html DyspneaReported by PatientHPIFor quality, patient reportsdyspnea. For context, patient reportswith activity. For aggravating factors, patient reportsactivity. For associated symptoms, patient reportschest pain/discomfort. For severity, patient reportsmoderate. For alleviating factors, patient reportsrest. Jett Beard MD [address], [place], [address], [facility] [place] [place] 10/21/2019 13:14:28
--- OUTSIDE RECORDS SUMMARY | 2025-07-15 10:13 | XMS_ITS | Continuity of Care Document ---
Author Organization [facility] Address [address] [place] [address] Assessment No assessment recorded. Plan of Treatment Reminders Order Date Submit Date Provider Last Modified By Organization Details Last Modified Time Details Appointments Annual exam (30) 2025 10:00A M Ty Funez MD Not available Not available Not available Lab CMP, serum or plasma 2024 [email or web address] [place] [address] (Lab), [address] [place] [address] , [place], [address], 06/22/2025 08:48:24 CBC w/ auto diff 2024 [email or web address] [place] [address] (Lab), [address] [place] [address] , [place], [address], 06/22/2025 08:48:24 lipid panel, serum [address] [place] [address] (Lab), [address] [place] [address] , [place], [address], 06/22/2025 08:48:24 apolipopr otein B (apo B), serum 2024 [email or web address] [place] [address] (Lab), [address] [place] [address] , [place], [address], 07/13/2025 09:54:56 vitamin D, 25-hydrox y, total, serum 2024 [email or web address] [place] [address] (Lab), [address] [facility] [place], [address], 07/13/2025 09:54:56 PSA, serum or plasma [address] [place] [address] (Lab), [address] [facility] [place], [address], 07/13/2025 09:54:56 Referral None recorded. Procedures None recorded. Surgeries None recorded. Imaging None recorded. Medication Orders None recorded. Patient TargetsNo targets recorded. Patient InstructionsNo instructions recorded. Reason for Referral None Reported. 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 2018 607.85:P eyronie' s disease Not Available [facility] 0 19:01:31 Tobacco dependence syndrome 55300966 Active 2018 305.1:To bacco abuse Not Available Replaced by [facility] 0 19:01:31 Restless legs syndrome 23070056 Active 2019 Jing zuñiga [facility] 5 09:11:10 Testosteron e level below reference range 884424109 Active 2019 Jing zuñiga [facility] 5 09:11:09 Chronic obstructive pulmonary disease 83788548 Active 2019 Jing zuñiga [facility] 5 09:11:10 Acid reflux 240835998 Active 2019 Jing zuñiga [facility] 5 09:11:10 Insomnia 557388455 Active 2019 Jing zuñiga, [facility] 5 09:11:10 Fatigue 52642680 Active 2024 Simon Schaefer DO [address] [place] [address] [address], [place], [place], [address] [place] [address] , [facility] 5 10:36:45 Reduced libido 4216974 Active 2024 Simon Schaefer DO [address] [place] [address] [address], [place], [address] [place] [address] , [facility] 5 10:36:55 Hyperlipide sarah 18643014 Active 2024 Simon Schaefer DO [address] [place] [address] [address], [place], [place], [address] [place] [address] [employer] [facility] 5 10:37:54 Chronic insomnia 172191582 Active 2024 Simon Schaefer DO [address] [place] [address] [address], [place], [address] [place] [address] , [facility] [employer] [facility] 5 10:39:44 Cigarette smoker 42084201 Active 2024 Simon Schaefer DO [address] [place] [address] [address], [place], [address] [place] [address] , [facility] [employer] [facility] 5 10:50:17 Onychomycos is of toenails 267661951 Active 2024 Simon Schaefer DO [address] [place] [address] [address], [place], [place], [address] [place] [address] [employer] [facility] 5 10:58:31 Problem Notes None recorded. Medical [...] Available Not Avai lable amoxicillin 875 mg-potassiu gordon clavulanate 125 mg tablet TAKE ONE (1) [...] and Address Organization Details Last Updated DateTime 182.88 cm 29.6 kg/m2 86747.9 3 g 98.1 [degF] 78 /min 94 % 20 /min 118/70 mm[Hg] Keesha Ross [facility] 14:32:47 Social History Question Answer Notes LastModified by Organizat ion Details LastModified Time Tobacco Smoking Status Current Every Day Smoker Notes: 30 years X ( was previously 3 PPD now down to 1 PPD) Not Available [employer] 12/31/2019 16:32:30 Do You Have An Advance Directive? No [email or web address] Information not available 11/27/2024 Are You Blind Or Do You Have Difficulty Seeing? No [email or web address] Information not available 11/27/2024 Is Blood Transfusion Acceptable In An Emergency? Yes [email or web address] Information not available 11/27/2024 Are You Deaf Or Do You Have Serious Difficulty Hearing? Yes Hard Hearing; No Hearing Aids jd Information not available 06/15/2025 What Type Of Diet Are You Following? REGULAR [email or web address] Information not available 11/27/2024 Do You Have A Medical Power Of Dice Person? No [email or web address] Information not available 11/27/2024 What Was The Date Of Your Most Recent Tobacco Screening? 06/15/2025 Information not available 06/15/2025 How Many Children Do You Have? 3 Information not available 11/27/2024 What Is Your Relationship Status? [email or web address] Information not available 11/06/2024 Has Tobacco Cessation Counseling Been Provided? Yes Information not available 12/30/2024 On What Date Was Tobacco Cessation Counseling Provided? 12/30/2024 [email or web address] Information not available 12/30/2024 How Many Years Have You Smoked Tobacco? 40 [email or web address] Information not available 11/06/2024 Sex: Unknown Functional Status Question Answer Note LastModified by Organizat ion Details LastModified Time Do you use any illicit or recreational drugs? No [email or web address] Information not available 06/15/2025 What is your level of alcohol consumption? Occasional [email or web address] Information not available 06/15/2025 Are you currently employed? Yes [email or web address] Information not available 11/27/2024 Do you have transportation difficulties? No Information not available 11/27/2024 Are you able to walk independently without assistance or assistive devices? YESWOREST [email or web address] Information not available 11/27/2024 Do you have difficulty doing errands alone? No [email or web address] Information not available 11/27/2024 Are you able to care for yourself independently? 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 None Information not available 06/15/2025 Do you or have you ever used any nicotine-free cigarettes, vape, or chewing tobacco? No [email or web address] Information not available 06/15/2025 Mental Status Question Answer Note LastModified by Organizat ion Details LastModified Time Do you feel stressed (tense, restless, nervous, or anxious, or unable to sleep at night)? [id number] [email or web address] Information not available 06/15/2025 Do you have difficulty concentrating, remembering or making decisions? No [email or web address] Information no t available 11/27/2024 Family History Nothing Reported. Medical History No medical history recorded. Immunizations Vaccine Type Date Status Note Provider Nam e and Address Organization Details Recorded Time Td (adult), 5 Lf tetanus toxoid, preservative free, adsorbed 0 completed Jing Haque [facility] 11/06/2024 09:11:10 Past Encounters Encounter ID Performer Location Encounter Start Date Encounter Closed Date Diagnosis/Indication Diagnosis SNOMED-CT Code Diagnosis ICD10 Code Diagnosis IMO Codes Diagnosis Note [id number] Ty Funez MD [facility] [address] [facility] [address] [place] [address] 06/15/2025 14:09:25 06/15/2025 14:59:30 Adult health examination 532195724 Z00.01 714219 6819740 Seborrheic keratosis 394 989472 L82.1 35071 Left ear r eassurance : Stable Family his tory of malignant melanoma 040348848 Z80.8 470309 Father: Stable Health Concerns Section Related Observation LastModified by Organization Detai ls LastModified Time None Recorded Concern Status LastModified by Organization Details LastModified Time None Recorded Payers Encounter Date Sequence Insurance Name Policy Number Policy Caballero Covered Member ID Caballero Member ID Guarantor Name 06/15/2025 1 [employer] (HMO) [id number] Adrian Garza [id number] James Garza Notes Date Note Type Note Provider Name and Address Organization Details Recorded Time 06/15/2025 text/html Annual WellnessReported by PatientSocial/Behavior al [...] 1.48Cardiovascular screening Blood: 02/27/2023 TC247 TG174 HDL21 [id number] screenin02/27/2023 A1c 4.7%; 03/14 Egfr 67Colon Cancer ScreeninHearing: difficult hearing; had hearing aids but broke themEyes: uncorrectedVaccines--T dap 12/01/2019Declines the flu shot Annual Patient is a 59-year-old male here to have his annual physical. 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 He commutes to [place] every 6 months. Tobacco: 1/2 pack/day Patient states his father of melanoma and he would like his left ear checked. He has a bump there. Ty Funez MD [address] [place] [address] [address], [place], [address], [facility] 06/15/2025 15:26:24
--- OUTSIDE RECORDS SUMMARY | 2025-07-15 10:13 | XMS_ITS | Patient Health Record ---
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 q1w Active Symbicort 160-4.5 MCG/ACT 2 puffs Inhala tion Twice a day; Duration: 30 days prn Active Bactrim DS 800-160 MG 1 tablet Orally Tw ice a day; Duration: 10 days 03/01/2023 Not-Takin g Famotidine 20 MG 1 tablet at bedtime as needed Orally twice a day; Duration: 90 days 03/14/2023 Active Wellbutrin SR 150 MG 1 tablet Orally Twi ce a day; Duration: 90 days Active Immunizations Vaccine Route Administration Date Status Comme nts COVID 19 Vaccine - Moderna Dose 1 IM Intramuscular 03/01/2021 Administered Social History Tobacco Use: Social History Observation Description Date Details (start date - stop date) Current Smoker NA - NA Tobacco Use/Smoking Question Answer Notes Are you a current smoker How often do you smoke cigarettes? every day How many cigarettes a day do you smoke? 11-20 Alcohol Screen (Audit-C) Question Answer Notes Did you have a drink containing alcohol in the p ast year? Yes Points 0 Interpretation Negative Problems Problem Type SNOMED Code ICD Code Onset Dates Problem Status W/U Status Risk Notes Problem Mixed hyperlipidemia (928576051) Mixed hyperlipidemia (E78.2) Active confirmed Problem Hypercalcemia (24162564) Hypercalcemia (E83.52) Active confirmed Problem Primary insomnia (5817924) Primary insomnia (F51.01) Active confirmed Problem Leukocytosis (530631661) Leukocytosis (D72.829) Active confirmed Problem Restless legs (07800230) RLS (restless legs syndrome) (G25.81) Active confirmed Problem Gastroesophageal reflux disease without esophagitis (106391878) Gastroesophageal reflux disease without esophagitis (K21.9) Active confirmed Problem Atherosclerosis (50127367) Atherosclerosis (I70.90) Active confirmed Problem Atherosclerosis of aorta (58623104) Aortic atherosclerosis (I70.0) Active confirmed Problem History of cholecystectomy (104109925) Status post cholecystectomy (Z90.49) Active confirmed Problem Tobacco user (640905894) Smoking greater than 40 pack years (F17.210) Active confirmed Problem Atherosclerotic heart disease of three affiliated coronary artery without angina pectoris (065501979783799) Atherosclerotic heart disease (I25.10) Active confirmed Problem Blood chemistry abnormal (986550334) Low testosterone in male (R79.89) Active confirmed Problem Induratio penis plastica (7270163) Peyronie's syndrome (N48.6) Active confirmed Problem Chronic kidney disease stage 3A (392825083) Stage 3a chronic kidney disease (N18.31) Active confirmed Problem Primary basal cell carcinoma of skin of right shoulder (disorder) (1252200358863120) Basal cell carcinoma (BCC) of right shoulder (C44.612) Active confirmed Problem Kidney stone (40816364) Bilateral kidney stones (N20.0) Active confirmed Plan Of Treatment Pending Test Test Name Order Date COMPREHENSIVE METABOLIC PANEL - CPL 05/16 IH EKG 05/04/2023 Chest PA and Lateral Views (43890) 03/04 Chest PA and Lateral Views (97048) 07/05 Ultrasound Abdomen and Pelvis 07/21/2022 US Renal Bilateral (60946) 02/28/2023 CT Abdomen and Pelvis w/o contrast (7417 6) 05/17/2022 CT Abdomen and Pelvis w/o contrast (7417 6) 05/24/2022 B-TYPE NATRIURETIC PEPTIDE 03/06/2023 CALCIUM 03/07/2023 CALCIUM IONIZED 03/08/2023 CALCIUM IONIZED 03/06/2023 CT Chest/Abdomen/Pelvis 03/07/2023 CBC W/O DIFF 03/07/2023 CBC W/O DIFF 03/09/2023 CBC W/O DIFF 03/06/2023 COMPREHENSIVE METABOLIC PANEL 03/06/2023 PTH INTACT 03/06/2023 RENAL PANEL 03/07/2023 RENAL PANEL 03/09/2023 RENAL PANEL 03/08/2023 URINE MICROSCOPIC ONLY 03/06/2023 URINALYSIS W/ MICROSCOPIC RFLX 3 LIPID PANEL - [facility] 06/14/2023 CMP 06/14/2023 CBC W/ AUTO DIFF - [facility] 06/14/2023 HEMOGLOBIN A1c 06/14/2023 TSH W/REFLEX TO FT4 06/14/2023 Future Test Test Name Order Date PTH, INTACT ([facility]) AND IONIZED CALCIUM 0 03/14/2023 CMP 03/14/2023 Insurance Providers Payer Name Payer Address Payer Phone Subscriber Number Group Number Insured Name Patient Relationship to Insured Coverage Start Date Coverage End Date [employer] [address] [facility] [place] [address] [id number] James Garza Self - patient is the insured 1 3 Medications Administered Medication Instructions Date of Administration Dosage Notes Depo-Medrol 80mg 06/21/2018 40 mg Dexamethasone 1 mg (1 billab le unit equals 1mg) 06/21/2018 4 mg Rocephin 1 gm (1 billable un it is 250mg) 06/21/2018 1 g Medical (General) History Medical History History ICD Code Gastroesophageal reflux disease without esophagitis K21.9 Low testosterone in male R79.89 Insomnia, unspecified type G47.00 Surgical History Surgery Date(Month/Year) cholecystectomy ecoli removed from stomach after gallbla dder removed Hospitalization History Reason Date(Month/Year) kidney function and calcium levels ecoli infection
== END 2025-07-14 23:59 | disposition home or self-care (01) ==
LOC: LAB.DROPOF 07-15 10:09
PROVIDERS: Visit Provider Nurse Practitioner Family
DX: N39.0 Urinary tract infection, site not specified (principal)
CPT/HCPCS: 87086